=== PATIENT | female | born 2000 | race Caucasian/White ===

== ENCOUNTER 2018-02-27 09:13 | Emergency (ER) | payer OTHER ==
[~2018-02-27] VITALS: Ht 160 cm; Wt 60.0 kg
[2018-02-27 09:32] VITALS: TEMP 98.8
[2018-02-27] MEDS ORDERED: ADVIL200 MG PO (10:03)
[2018-02-27 10:12] LABS: BASO % 0.4 % (0.0-2.0); EOS # 0.4 (0.0-0.7); EOS % 4.4 % (0-4.0); GRAN # 5.6 (1.4-6.5); GRAN % 70.4 % (42.2-75.2); HEMATOCRIT 45.5 % (35.0-45.0); HEMOGLOBIN 14.8 g/dl (12.0-15.0); LYMPH # 1.3 (1.2-3.4); LYMPH % 16.8 % (20.0-51.0); MEAN CELL VOLUME 85 fl (80.0-95.0); MEAN CORPUSCULAR HEMOGLOBIN 28 pg (26.0-32.0); MEAN CORPUSCULAR HGB CONC 33 g/dl (33.0-37.0); MEAN PLATELET VOLUME 10.6 fl (7.4-10.4); MONO # 0.6 (0.1-0.6); MONO % 7.7 % (1.7-9.3); PLATELET COUNT 239 K/mm3 (130-400); RED BLOOD COUNT 5.35 M/mm3 (4.10-5.30); REDCELL DISTRIBUTION WIDTH-CV 13.4 % (11.5-14.5)
[2018-02-27 10:27] LABS: ALBUMIN 4.6 gm/dL (3.5-5.0); CALCIUM 9.4 mg/dL (8.4-10.2); CREATININE, serum 0.78 mg/dL (0.52-1.25); POTASSIUM 4.1 mmol/L (3.4-5.0); TOTAL PROTEIN 7.9 gm/dL (6.4-8.2)
[2018-02-27] MEDS ORDERED: FLAGYL500 MG PO (11:25)
[2018-02-27 11:37] VITALS: BP 121/80; PULSE 94
== END 2018-02-27 11:39 | disposition home or self-care (01) ==
LOC: COL.ER 09:13
PROVIDERS: Emergency Medicine
DX: N76.0 Acute vaginitis (principal); N93.8 Other specified abnormal uterine and vaginal bleeding; Z79.1 Long term (current) use of non-steroidal anti-inflammatories (NSAID)
CPT/HCPCS: J2405; J7030

== ENCOUNTER → 2018-03-18 | Outpatient (CLI) | payer OTHER ==
[~2018-03-18] MED LIST: ADVIL200 MG PO; FLAGYL500 MG PO
== END ==
LOC: COL.RAD 10:40
DX: N92.1 Excessive and frequent menstruation with irregular cycle (principal)

== ENCOUNTER 2019-09-25 12:31 | Outpatient (RCR) | payer OTHER | END 2019-12-11 11:58 | disposition home or self-care (01) | LOC: MKS.ESL.PT 12:31 | DX: M25.561 Pain in right knee (principal) ==